=== PATIENT | male | born 1985 | race Caucasian/White ===

== ENCOUNTER 2022-09-17 12:37 | Emergency (ER) | payer BC, SELFPAY ==
[2022-09-17 12:54] VITALS: BP 126/78; PULSE 97; RESP 18; TEMP 37; O2SAT 97; BMI 26.5
--- NOTE | 2022-09-17 13:00 | CRLHL7_ITS ---
For Patients: As a result of the Century Cures Act, medical imaging exams and procedure reports are released immediately into your electronic medical record. You may view this report before your referring provider. If you have questions, please contact your health care provider. INDICATION: Ankle pain, injury TECHNIQUE: Ankle radiograph 3 views left COMPARISON: None FINDINGS: Bone: There is a mildly displaced transverse fracture in the medial malleolus. A comminuted nondisplaced fractures partially visualized in the distal fibular diaphysis. Joint: The ankle mortise joint and the visualized hindfoot joints are unremarkable in appearance. No significant ankle effusion is seen. Soft tissue: Edema or hemorrhage is present within the Kager`s fat pad and mild soft tissue swelling is seen surrounding the ankle. No radiopaque foreign bodies are seen. IMPRESSIONS: 1. There is a mildly displaced transverse fracture in the medial malleolus. 2. A comminuted nondisplaced fractures partially visualized in the distal fibular diaphysis. Dictated by Rodriguez Lema MD @ 09/17/2022 1:28:21 PM Dictated by: Rodriguez Lema MD @ 09/17/2022 13:28:22 (Electronically Signed)
[2022-09-17] MEDS: OXYCODONE 5 MG TABLET 10 MG PO (13:47)
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
== END 2022-09-17 14:50 | disposition home or self-care (01) ==
PROVIDERS: Emergency Provider Family Medicine; PCP Family Medicine; Referring Provider Family Medicine
DX: S82.52XA Displaced fracture of medial malleolus of left tibia, initial encounter for closed fracture (principal); S82.455A Nondisplaced comminuted fracture of shaft of left fibula, initial encounter for closed fracture
CPT/HCPCS: 29515; 73610; 99283; A9270

== ENCOUNTER 2022-09-27 11:00 | Day surgery (SDC) | payer BC, SELFPAY ==
[2022-09-27] VITALS (14 sets, daily range): BP systolic 102–135; BP diastolic 62–95; PULSE 70–90; RESP 14–16; TEMP 36.8–37.3; O2SAT 96–100; BMI 27.4
[2022-09-27] MEDS: SODIUM CHLORIDE 0.9 % (FLUSH) 10 ML SYRINGE IVF (11:10)
[2022-09-27] MEDS: LACTATED RINGERS 1000 ML 1,000 ML 100 ML IV (11:10)
[2022-09-27] MEDS: MIDAZOLAM HCL 1 MG/ML inj IVP (11:47)
[2022-09-27] MEDS: fentaNYL 100 MCG/2 ML inj IVP (11:47)
--- NOTE | 2022-09-27 11:52 | SUR.PREOP ---
TIME?OUT:?1145 PT/RN/MDA?VERIFICATION?OF?SURGICAL?SITE left ankle,?PROCEDURE nerve block,?AND?CONSENT OBTAINED?PRIOR?TO?INVASIVE?PROCEDURE.
[2022-09-27] MEDS: CEFAZOLIN 2 GM in 0.9 % SODIUM CHLORIDE Mini-bag 100 ML IVPB (12:40)
--- NOTE | 2022-09-27 13:00 | CRLHL7_ITS ---
For Patients: As a result of the Cures Act, medical imaging exams and procedure reports are released immediately into your electronic medical record. You may view this report before your referring provider. If you have questions, please contact your health care provider. Indication: Left Bimalleolar Ankle ORIF Technique: Three fluoroscopic images of the left ankle. Fluoroscopic time 2 minutes 10.7 seconds. IMPRESSION: Fluoroscopic guidance for open reduction internal fixation distal tibial and fibular fractures. Dictated by Geoffrey Ignacio MD @ 09/27/2022 2:38:14 PM (Electronically Signed)
--- NOTE | 2022-09-27 13:10 | P.NB_ITS ---
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 Images saved: Yes Medications given in 5ml increments after negative aspiration: Ropivicaine %: 0.5 mL: 20 Needle gauge: 22 Patient tolerated procedure well: Yes Additional comments: Needle noted adjacent to nerve Block Charges Block Charge (with Pro Fee): Sciatic Nerve Use of Ultrasound Machine for Block: Yes- US Guidance/pain block
--- NOTE | 2022-09-27 13:10 | W.ANESCHARGE ---
Anesthesia Charges Start Date/Time Anesthesia Start Date: 09/27/22 Anesthesia Start Time: 12:30 Stop Date/Time Anesthesia Stop Date: 09/27/22 Anesthesia Stop Time: 15:14
--- NOTE | 2022-09-27 13:11 | P.NB_ITS ---
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 Images saved: Yes Medications given in 5ml increments after negative aspiration: Ropivicaine %: 0.5 mL: 20 Needle gauge: 20 Patient tolerated procedure well: Yes Additional comments: Needle noted adjacent to nerve Block Charges Block Charge (with Pro Fee): Femoral Nerve Use of Ultrasound Machine for Block: Yes- US Guidance/pain block
--- NOTE | 2022-09-27 14:40 | W.ANESCHARGE ---
Anesthesia Charges Start Date/Time Anesthesia Start Date: 09/27/22 Anesthesia Start Time: 12:30 Stop Date/Time Anesthesia Stop Date: 09/27/22 Anesthesia Stop Time: 15:14
--- NOTE | 2022-09-27 15:35 | P.ORPRC_ITS ---
Procedure Note Date of procedure: 09/27/22 Procedure: PREOPERATIVE DIAGNOSES: 1. Left ankle trimalleolar fracture, closed, acute POSTOPERATIVE DIAGNOSES: 1. Left ankle trimalleolar fracture, closed, acute NAME OF OPERATION: 1. Left ankle bimalleolar (medial and lateral malleolar) open reduction with in ternal fixation 2. Left ankle closed treatment posterior malleolus fracture fragment 3. [id number] - intraoperative fluoroscopy up to 1 hour. SURGEON: Juanito Ge MD TILE HELPER: Ronald Moreau PA-C; Of note, an nursing home assistant administrator was critical for this case to aide in patient positioning, leg manipulation, tissue retraction, closure, & splinting. ANESTHESIA: Regional block plus MAC anesthetic. EBL: Less than 50 mL IMPLANTS: Arthrex fibulock 3.0 mm long (180 mm) fibular intramedullary nail with 3.0 mm cortical nonlocking screws distally (total of 2 screws) and an end cap.; 24.0 mm partially-threaded cannulated screws for medial malleolar fixation TOURNIQUET: 85 min at 300 torr INDICATIONS: The patient is a pleasant 37-year-old male who sustained a left ankle injury in the recent past with difficulty bearing weight. Workup included xrays which revealed an unstable ankle fracture as noted above. Given these findings, surgery was recommended to stablize the ankle. FINDINGS: Closed, comminuted, displaced medial and lateral malleolus fractures with mildly displaced posterior malleolus fracture fragment that was less than 10% of the articular surface. PROCEDURE: Following a thorough discussion of risks, benefits, and alternatives, consent was obtained and the left ankle was marked. The patient was brought to the operating room and placed supine on the operating table. Induction of anesthesia was undertaken. Appropriate time out was performed identifying proper patient, site and procedure. 2 g IV Ancef was administered within 1 hour of incision preoperatively. The left lower extremity was prepped and draped in the appropriate sterile fashion using ChloraPrep. The limb was exsanguinated and the tourniquet inflated. A longitudinal incision was made overlying the medial malleolar fracture. Sharp incision through skin and blunt dissection to the subcutaneous tissue allowed us to protect the crossing neurovascular structures. The fracture was cleared of interposed periosteum/callus/hematoma. Upon entering the joint, there was some small chondral fragments that were also flushed out. The joint was inspected and indeed had the small chondral defects, but otherwise was relatively healthy. The fracture was reduced, and secured with guide pin(s) placed for cannulated screw(s) perpendicular to the fracture plane. After confirming the pin(s) to be extra-articular and in appropriate position, the bone was subsequently drilled, and we placed partially threaded 4.0 mm cannulated screw(s) with excellent compression. This was simultaneously held with a dental pick to maintain reduction during drilliing and screw placement. At this stage, attention was turned to the lateral malleolus fixation. Initially, a lateral x-ray helped us with the general alignment of where the guide pin would track. This was drawn on the skin for future reference. We then entered the distal fibula with a guide pin at the fibular tip according to the technique guide. It was passed into the fibula and after confirming on both AP and lateral fluoroscopic images, it was found to pass up the fibula approximately 130+ mm. The fracture was held reduced with fingers & clamp throughout the reaming to maintain its reduced position. The distal portion of the fibula was then reamed with the opening Reamer, followed by the 3.2 mm Reamer up the fibular diaphysis. The canal was very tight, and thus we progressed slowly and in the toggle fashion so as not to break through the fibula. After proper reaming, the nail was placed. The proximal fins were engaged with the torque limiting screwdriver. Distal interlocking screws were then placed from lateral to medial being cautious not to allow them to penetrate the medial fibular cortex. These had excellent purchase and were necessary given her frail bone quality. Finally, the end cap was placed and confirmed on AP and lateral views to be in appropriate position. The posterior malleolus fragment was noted to be a small portion of the articular surface and thus closed treatment was elected. After confirming appropriate reduction/positioning on C-arm fluoroscopic imaging, the ankle was tested for syndesmosis stability. External rotation was performed. Indeed it remained stable. No widening of the mortise was appreciated. At this stage, the wound was thoroughly irrigated with normal saline. Closure was performed with 3-0 / 4-0 Vicryl and monocryl, respectively for subcutaneous and subcuticular closure. Dressings were applied and a sugar-tong splint was applied. The patient was awoken from anesthesia and transferred to the PACU in stable condition. PLAN: 1. Elevate operative extremity. 2. Encouraged ice. 3. Percocet for pain as needed. 4. Follow up with PA visit in 1-2 weeks for wound check and splint removal. Transition to CAM boot. Advance weight-bearing slowly over the next 1-2 weeks as tolerated 5. Toe-touch weight-bearing operative lower extremity at this time
--- NOTE | 2022-09-27 16:29 | SUR.PHASEII ---
Pt tolerated water and toast. Pt verbalized readiness to be discharged and discharge instructions.
== END 2022-09-27 16:28 | disposition home or self-care (01) ==
PROVIDERS: Visit Provider Orthopaedic Surgery Sports Medicine
PROC: (CPT 27822; principal; 2022-09-27 13:00)
DX: S82.852A Displaced trimalleolar fracture of left lower leg, initial encounter for closed fracture (principal)
CPT/HCPCS: 27822; 01480; 64445; 64447; 73610; 76000; 76942; C1713; J0690; J2250; J2704; J2795; J3010; J7120